=== PATIENT | male | born 1955 | race Caucasian/White ===

== ENCOUNTER → 2016-10-31 | Outpatient (CLI) | payer OTHER ==
--- NOTE | ~2016-10-31 | CT55 ---
[facility] A Service of [facility] & [facility] RADIOLOGY TEXT RESULTS PATIENT: JONAH CHRISTIE LOCATION: [facility] : 55 UNIT #: [id number] AGE: [address]: Josefina Wakefield SEX: M ORDER DR: [id number] [facility] [address] [place], [place] [address] [id number] O MR#: [id number] Acc #: [id number] NAME: JONAH CHRISTIE : 1955 SEX: M STUDY DATE/TIME: 10/31/2016 8:27 UNIT: [facility] ROOM: STUDY DESCRIPTION: CT Chest W Con Attending Physician: Josefina Wakefield Referring Physician: Josefina Wakefield Ordering Physician: Josefina Camejo A.P.R.N. Primary Care Physician: Josefina Camejo A.P.R.N. MEDICAL IMAGING REPORT This report is preliminary unless electronic signature is present EXAM CT of the chest with contrast. INDICATIONS 61-year-old male with a knot on the left side of the chest for 6 months. Question mass. TECHNIQUE CT of the chest was performed following administration of IV contrast. Coronal and sagittal reformatted images were obtained. This CT exam was performed with one or more of the following radiation dose reduction techniques: automatic exposure control, adjustment of mA and/or kV according to patient size, and iterative reconstruction. COMPARISON No comparisons available. FINDINGS There is mild atelectasis in the lower lobes. Calcified granuloma right upper lobe. No evidence of lymphadenopathy or pleural effusion. Small hiatal hernia containing fat. Limited imaging of the upper abdomen is unremarkable. The bone windows are unremarkable. The technologist reports a fish oil marker was placed on the palpable abnormality. I do not see a fish oil tablet present. I do not see any evidence of the chest wall mass either. IMPRESSION 1. I do not see any evidence of any mass involving the chest wall on these images. The technologist did state that the mass was marked with a fish oil tablet, however, I do not see a fish oil tablet present. 2. There is no evidence of any suspicious lung nodule or pulmonary mass. [facility]. [facility] A Service of [facility] & [facility] RADIOLOGY TEXT RESULTS PATIENT: JONAH CHRISTIE LOCATION: [facility] : 55 UNIT #: [id number] AGE: [address]: Josefina Wakefield SEX: M ORDER DR: Dictated by... Justice Abdi M.D. THIS IS AN ELECTRONICALLY VERIFIED REPORT Justice Abdi M.D. at 11/01/2016 11:31 AM ARS/gamal TD: 10/31/2016 16:04 JOB #: [id number] MEDICAL IMAGING REPORT Page 1 of 1 COPY
[2016-10-31 08:11] LABS: POC - CREATININE 0.98 mg/dL (0.64-1.27); POC - GFR >60.0 mL/min (>60)
== END | disposition home or self-care (01) ==
LOC: CCAT 07:41
PROVIDERS: Nurse Practitioner Adult Health
DX: R22.2 Localized swelling, mass and lump, trunk (principal)
CPT/HCPCS: 71260; 82565; Q9967